=== PATIENT | female | born 1980 | race Caucasian/White ===

== ENCOUNTER 2018-02-23 16:33 | Observation (INO) | payer BC, OTHER ==
[~2018-02-23] VITALS: Ht 165.1 cm; Wt 91.6 kg
[2018-02-23] MEDS ORDERED: PNV1TABL76 PO (17:15)
[2018-02-23] MEDS ORDERED: ASPI-1158 PO (17:16)
== END 2018-02-23 20:05 | disposition home or self-care (01) ==
LOC: L&D 16:33
PROVIDERS: ADMIT Specialist; ATTEND Specialist
DX: Z04.1 Encounter for examination and observation following transport accident (principal); Z3A.33 33 weeks gestation of pregnancy
CPT/HCPCS: 76815; 76818; 99281; G0378